=== PATIENT | male | born 1970 | race Caucasian/White ===

== ENCOUNTER 2017-04-08 09:45 | Emergency (ER) | payer BC, OTHER ==
[~2017-04-08] VITALS: Ht 177.8 cm; Wt 73.5 kg
[2017-04-08 09:49] VITALS: Ht 177.8 cm; Wt 73.5 kg
[2017-04-08] MEDS ORDERED: ONDANSETRON 4 MG INJ IV STA ×2 (10:49→12:13)
[2017-04-08] MEDS ORDERED: SOD CHLORIDE 0.9% 1,000 ML IV ONE (11:00)
[2017-04-08 11:06] LABS: BASOPHIL # 0.1 10^3/ul (0.0-0.1); BASOPHILS % 0.4 % (0.0-2.0); EOSINOPHILS % 0.1 % (0.0-7.0); HEMATOCRIT 42.5 % (42.0-52.0); HEMOGLOBIN 14.7 g/dl (14.0-18.0); LYMPHOCYTES # 1.3 10^3/ul (0.8-2.9); LYMPHOCYTES % 9.8 % (15.0-51.0); MEAN CORPUSCULAR HEMOGLOBIN 29.2 pg (29.0-33.0); MEAN CORPUSCULAR HGB CONC 34.6 g/dl (32.0-37.0); MEAN CORPUSCULAR VOLUME 84.5 fl (82.0-101.0); MEAN PLATELET VOLUME 9.7 fl (7.4-10.4); MONOCYTE # 0.4 10^3/ul (0.3-0.9); MONOCYTES % 3.3 % (0.0-11.0); NEUTROPHILS % 86.1 % (39.0-77.0); PLATELET COUNT 283 10^3/UL (140-415); RED BLOOD COUNT 5.03 10^6/ul (4.70-6.10); RED CELL DISTRIBUTION WIDTH 11.8 % (11.5-14.5); WHITE BLOOD COUNT 12.8 10^3/ul (4.8-10.8)
[2017-04-08 11:31] LABS: ALBUMIN 4.7 g/dl (3.3-4.9); ALBUMIN/GLOBULIN RATIO 1.34; BILIRUBIN,INDIRECT 0.9 mg/dl (0-1.1); BILIRUBIN,TOTAL 0.9 mg/dl (0.2-1.3); CALCIUM 9.9 mg/dl (8.4-10.2); CREATININE 0.92 mg/dl (0.61-1.24); POTASSIUM 3.7 mmol/L (3.5-5.1); TOTAL PROTEIN 8.2 g/dl (6.1-8.1)
--- NOTE | 2017-04-08 13:07 | ERD ---
ER Documentation Chief Complaint Chief Complaint NAUSEA AND VOMITING SINCE MIDNIGHT, ABD PAIN, SORE THROAT HPI This is a 46-year-old male presenting to emergency department for nausea and vomiting since midnight yesterday. Patient states for the past 9 hours he has had "nonstop vomiting" and is now having generalized nonspecific abdominal pain. Patient states he is throwing up yellow fluid. Emesis is nonbloody. Patient denies fevers or chills. No dysuria or hematuria. No back or flank pain. No chest pain, shortness breath or difficulty breathing. No cough. ROS All systems reviewed and are negative except as per history of present illness. Medications Home Meds Active Scripts Ondansetron (Ondansetron Odt) 4 Mg Tab.rapdis, 4 MG PO Q6H Y for NAUSEA AND/OR VOMITING, #10 TAB Prov:PADMINI SZYMANSKI NP 04/08/17 Allergies Allergies: Coded Allergies: No Known Allergy (Unverified , 04/08/17) PMhx/Soc Medical and Surgical Hx: pt denies Medical Hx, pt denies Surgical Hx History of Surgery: No Anesthesia Reaction: No Hx Neurological Disorder: No Hx Respiratory Disorders: No Hx Cardiac Disorders: No Hx Psychiatric Problems: No Hx Miscellaneous Medical Probl: No Hx Alcohol Use: No Hx Substance Use: No Hx Tobacco Use: No Smoking Status: Never smoker Physical Exam Vitals Vital Signs Date Time Temp Pulse Resp B/P Pulse Ox O2 Delivery O2 Flow Rate FiO2 04/08/17 13:32 97.4 56 16 117/58 98 Room Air 04/08/17 09:49 97.0 60 17 127/75 99 Physical Exam Const: Alert, actively vomiting Head: Atraumatic Eyes: Normal Conjunctiva ENT: Normal External Ears, Nose and Mouth. Neck: Full range of motion..~ No meningismus. Resp: Clear to auscultation bilaterally. No wheezing Cardio: Regular rate and rhythm, no murmurs Abd: Soft, generalized tenderness, non distended. Normal bowel sounds Skin: No petechiae or rashes Back: No midline or flank tenderness Ext: No cyanosis, or edema Neur: Awake and alert Psych: Normal Mood and Affect Result Diagram: 04/08/17 1056 04/08/17 1056 Results 24 hrs Laboratory Tests Test 04/08/17 10:56 04/08/17 13:27 White Blood Count 12.810^3/ul Red Blood Count 5.0310^6/ul Hemoglobin 14.7g/dl Hematocrit 42.5% Mean Corpuscular Volume 84.5fl Mean Corpuscular Hemoglobin 29.2pg Mean Corpuscular Hemoglobin Concent 34.6g/dl Red Cell Distribution Width 11.8% Platelet Count 08591^3/UL Mean Platelet Volume 9.7fl Neutrophils % 86.1% Lymphocytes % 9.8% Monocytes % 3.3% Eosinophils % 0.1% Basophils % 0.4% Nucleated Red Blood Cells % 0.0/100WBC Neutrophils # 11.010^3/ul Lymphocytes # 1.310^3/ul Monocytes # 0.410^3/ul Eosinophils # 0.010^3/ul Basophils # 0.110^3/ul Nucleated Red Blood Cells # 0.010^3/ul Sodium Level 143mmol/L Potassium Level 3.7mmol/L Chloride Level 104mmol/L Carbon Dioxide Level 26mmol/L Anion Gap 17 Blood Urea Nitrogen 19mg/dl Creatinine 0.92mg/dl Glucose Level 150mg/dl Calcium Level 9.9mg/dl Total Bilirubin 0.9mg/dl Direct Bilirubin 0.00mg/dl Indirect Bilirubin 0.9mg/dl Aspartate Amino Transf (AST/SGOT) 21IU/L Alanine Aminotransferase (ALT/SGPT) 28IU/L Alkaline Phosphatase 57IU/L Total Protein 8.2g/dl Albumin 4.7g/dl Globulin 3.50g/dl Albumin/Globulin Ratio 1.34 Lipase 57U/L Bedside Urine pH (LAB) 8.5 Bedside Urine Protein (LAB) 1+ Bedside Urine Glucose (UA) Negative Bedside Urine Ketones (LAB) 2+ Bedside Urine Blood Negative Bedside Urine Nitrite (LAB) Negative Bedside Urine Leukocyte Esterase (L Negative Current Medications Medications (Trade) Dose Ordered Sig/Ingris Route PRN Reason Start Time Stop Time Status Last Admin Dose Admin Sodium Chloride (NS) 1,000 ml @ 1,000 mls/hr Q1H ONCE IV 04/08/17 11:00 04/08/17 11:59 DC 04/08/17 10:59 Ondansetron HCl (Zofran Inj) 4 mg ONCE STAT IV 04/08/17 10:49 04/08/17 10:55 DC 04/08/17 10:59 Ondansetron HCl (Zofran Inj) 4 mg ONCE STAT IV 04/08/17 12:13 04/08/17 12:14 DC 04/08/17 12:17 Metoclopramide HCl (Reglan) 10 mg ONCE ONCE IV 04/08/17 13:30 04/08/17 13:31 DC 04/08/17 13:08 Dexamethasone (Decadron) 4 mg ONCE ONCE IV 04/08/17 15:00 04/08/17 15:01 DC 04/08/17 14:48 Procedures/MDM MDM: This is a 46-year-old male presenting to the emergency department for vomiting and generalized nonspecific abdominal pain 9 hours. Patient states he began vomiting last night and has had continuous vomiting since. IV access obtained and patient given 1 L IV fluid bolus of normal saline and Zofran 4 mg IV. Labs drawn. Influenza swab negative. CBC shows slightly elevated white blood cell count of 12.8 otherwise unremarkable. CMP shows no significant electrolyte imbalance. Creatinine and BUN are normal. Glucose is normal. Lipase is normal. Urine dip shows 2+ ketones and 1+ protein. Upon reassessment, patient continues to have nausea and vomiting. Another dose of Zofran 4 mg IV ordered. Patient taken to CT for CT imaging of abdomen and pelvis. Upon return, patient continues to have nausea and vomiting. Patient given Reglan [address] abdomen and pelvis reviewed by radiologist as normal. Upon reassessment, patient continues to have nausea. Consulted with Dr. Martinez who suggested Decadron 4mg IV. Patient given medication. Upon reassessment, nausea has improved. No active vomiting. Patient appears alert and stable. Patient states he feels he is able to go home. Patient is appropriate for outpatient management only given prescription for Zofran ODT 4 mg #10. Instructed patient to follow-up with primary care provider in the next 2-3 days for reassessment and additional management. Return to the ED in 8 hours for abdominal pain recheck. Return to ED for any high fever, chest pain, difficulty breathing, shortness breath, wheezing, vomiting, diarrhea, abdominal pain or any new or worsening symptoms. Patient verbalizes understanding. All questions answered at discharge. Disclaimer: Inadvertent spelling and grammatical errors are likely due to EHR/ dictation software use and do not reflect on the overall quality of patient care. Also, please note that the electronic time recorded on this note does not necessarily reflect the actual time of the patient encounter. Departure Diagnosis: Primary Impression: Nausea and vomiting Vomiting type: unspecified Vomiting Intractability: non-intractable Qualified Code: R11.2 - Non-intractable vomiting with nausea, unspecified vomiting type Condition: PADMINI Carrasco NP Apr 08, 2017 13:07
[2017-04-08 13:25] LABS: URINE BLOOD (Dip) POC Negative (NEGATIVE)
[2017-04-08] MEDS ORDERED: METOCLOPRAMIDE 10 MG INJ IV ONE (13:30)
[2017-04-08 13:32] VITALS: BP 117/58; PULSE 56; RESP 16; TEMP 97.4
[2017-04-08] MEDS ORDERED: DEXAMETHASONE 4 MG/ML 1 ML INJ IV ONE (15:00)
[2017-04-08] MEDS ORDERED: ONDA4TAB14 PO (15:16)
--- NOTE | 2017-04-08 15:52 | RADRPT ---
PROCEDURE: CT Abdomen and pelvis without contrast. CLINICAL INDICATION: Abdominal pain. Vomiting. TECHNIQUE: CT scan of the abdomen and pelvis without contrast was performed on a multidetector hig h-resolution CT scan. . Coronal and sagittal reformatted images were obtained from the axial [facility] e images. Standard CT scan of the abdomen pelvis without contrast protocols were performed. The total exam CTDI equals 9.43 mGy and the total exam DLP equals 547.94 mGy-cm. One or more of the following dose reduction techniques were used: - Automated exposure control. - Adjustment of the mA and/or kV according to patient size. Use of iterative reconstruction technique. COMPARISON: None. FINDINGS: The kidneys are normal in size without calcified renal calculi, hydronephrosis or intra renal masses bilaterally. The ureters and urinary bladder are unremarkable. The prostate gland is unremarkable. Negative for intra-abdominal free air, free fluid, abscesses or lymphadenopathy. Those portions of what appear to represent the appendix are unremarkable. Specifically no CT evidenc e of appendicitis. The colon is unremarkable. The stomach and small bowel are unremarkable. The liver spleen pancreas and adrenal glands are unremarkable. The aorta is unremarkable. Abdominal pelvic wall unremarkable. Lung bases are unremarkable. There ar e no acute osseous findings are osteoblastic/osteolytic lesions. Sclerotic density involving the ant erior right acetabulum is consistent with bone island. IMPRESSION: 1. No evidence of appendicitis or diverticulitis. No bowel obstruction. 2. No evidence of calcified urinary calculi or obstructive uropathy. 3. Negative for intra-abdominal free air, free fluid, abscesses or lymphadenopathy. RPTAT:AAJJ Physician Myriam Date Time Electronically viewed and signed by Physician Myriam on 04/08/2017 15:52 BM/
[2017-04-09] MEDS ORDERED: BUPR450T PO (21:29)
[2017-04-09] MEDS ORDERED: QUET300T18 PO (21:30)
[2017-04-09] MEDS ORDERED: PRAZ5CAP16 PO (21:30)
[2017-04-09] MEDS ORDERED: GABA-526 PO (21:30)
[2017-04-09] MEDS ORDERED: MAG355OR14 PO (21:45)
[2017-04-09] MEDS ORDERED: ONDA4TAB8 PO (21:45)
== END 2017-04-08 15:22 | disposition home or self-care (01) ==
LOC: FTE 09:45
DX: R11.2 Nausea with vomiting, unspecified (principal)
CPT/HCPCS: 74176; 80053; 81003; 83690; 85025; 87400; 96374; 96375; 96376; 99285; J1100; J2405; J2765; J7030

== ENCOUNTER 2017-04-09 18:31 | Emergency (ER) | payer BC ==
[~2017-04-09] VITALS: Ht 167.6 cm; Wt 71.5 kg
[~2017-04-09 18:31] MED LIST: ONDA4TAB14 PO
[2017-04-09 18:37] VITALS: Ht 167.6 cm; Wt 71.5 kg
[2017-04-09] MEDS ORDERED: ONDANSETRON 4 MG INJ IV STA (20:00)
[2017-04-09] MEDS ORDERED: SOD CHLORIDE 0.9% 1,000 ML IV STA (20:00)
[2017-04-09 20:17] LABS: BASOPHIL # 0.1 10^3/ul (0.0-0.1); BASOPHILS % 0.4 % (0.0-2.0); EOSINOPHILS % 0.3 % (0.0-7.0); HEMATOCRIT 39.9 % (42.0-52.0); LYMPHOCYTES # 1.5 10^3/ul (0.8-2.9); MEAN CORPUSCULAR HEMOGLOBIN 29.7 pg (29.0-33.0); MEAN CORPUSCULAR HGB CONC 35.1 g/dl (32.0-37.0); MEAN CORPUSCULAR VOLUME 84.7 fl (82.0-101.0); MEAN PLATELET VOLUME 10.3 fl (7.4-10.4); MONOCYTE # 1.1 10^3/ul (0.3-0.9); MONOCYTES % 8.4 % (0.0-11.0); NEUTROPHIL # 10.7 10^3/ul (1.6-7.5); NEUTROPHILS % 79.5 % (39.0-77.0); PLATELET COUNT 280 10^3/UL (140-415); RED BLOOD COUNT 4.71 10^6/ul (4.70-6.10); RED CELL DISTRIBUTION WIDTH 11.9 % (11.5-14.5); WHITE BLOOD COUNT 13.5 10^3/ul (4.8-10.8)
[2017-04-09 20:53] LABS: ALBUMIN 4.6 g/dl (3.3-4.9); ALBUMIN/GLOBULIN RATIO 1.84; BILIRUBIN,INDIRECT 0.7 mg/dl (0-1.1); BILIRUBIN,TOTAL 0.7 mg/dl (0.2-1.3); CALCIUM 8.8 mg/dl (8.4-10.2); CREATININE 0.84 mg/dl (0.61-1.24); POTASSIUM 3.4 mmol/L (3.5-5.1); TOTAL PROTEIN 7.1 g/dl (6.1-8.1)
[2017-04-09] MEDS ORDERED: BUPR450T PO (21:29)
[2017-04-09] MEDS ORDERED: PRAZ5CAP16 PO (21:30)
[2017-04-09] MEDS ORDERED: GABA-526 PO (21:30)
[2017-04-09] MEDS ORDERED: QUET300T18 PO (21:30)
[2017-04-09] MEDS ORDERED: MAG355OR14 PO (21:45)
[2017-04-09] MEDS ORDERED: ONDA4TAB8 PO (21:45)
[2017-04-09 22:15] VITALS: BP 126/86; PULSE 92; RESP 14; TEMP 98.2
--- NOTE | 2017-04-09 23:42 | ERD ---
ER Documentation Chief Complaint Chief Complaint was here yesterday for same c/o left sided abd pain w/ N/V HPI 46-year-old man presents with continued nausea and vomiting despite evaluation and workup yesterday in this emergency department. States he has some lower abdominal cramping but states that overall has improved compared to yesterday, denies blood per rectum or melena, no fevers or chills, no chest pain or shortness of breath. ROS All systems reviewed and are negative except as per history of present illness. Medications Home Meds Active Scripts Mag Hydrox/Al Hydrox/Simeth (Maalox Advanced Suspension) 355 Ml Oral.susp, 2 TSP PO TID for PAIN, #24 OZ Prov:DUONG CANTRELL MD 04/09/17 Ondansetron Hcl* (Zofran*) 4 Mg Tablet, 4 MG PO Q8H Y for NAUSEA AND/OR VOMITING , #15 TAB Prov:DUONG CANTRELL MD 04/09/17 Reported Medications Quetiapine Fumarate* (Quetiapine Fumarate*) 300 Mg Tablet, 300 MG PO HS, TAB 04/09/17 Gabapentin* (Gabapentin*) 600 Mg Tablet, 600 MG PO DAILY, #60 TAB 04/09/17 Prazosin Hcl* (Prazosin Hcl*) 5 Mg Capsule, 5 MG PO HS, CAP 04/09/17 Bupropion Hcl* (Forfivo XL*) 450 Mg Tab.er.24h, 450 MG PO DAILY, TAB 04/09/17 Discontinued Scripts Ondansetron (Ondansetron Odt) 4 Mg Tab.rapdis, 4 MG PO Q6H Y for NAUSEA AND/OR VOMITING, #10 TAB Prov:PADMINI SZYMANSKI NP 04/08/17 Allergies Allergies: Coded Allergies: No Known Allergy (Unverified , 04/09/17) PMhx/Soc Psychiatric illness, anxiety Medical and Surgical Hx: pt denies Medical Hx History of Surgery: Yes Anesthesia Reaction: No Hx Neurological Disorder: No Hx Respiratory Disorders: No Hx Cardiac Disorders: No Hx Psychiatric Problems: No Hx Miscellaneous Medical Probl: No Hx Alcohol Use: No Hx Substance Use: No Hx Tobacco Use: No Smoking Status: Never smoker FmHx Family History: No diabetes Physical Exam Vitals Vital Signs Date Time Temp Pulse Resp B/P Pulse Ox O2 Delivery O2 Flow Rate FiO2 04/09/17 22:15 98.2 92 14 126/86 98 Room Air 04/09/17 19:14 98.5 62 16 127/70 98 Room Air 04/09/17 18:37 98.4 49 20 145/69 98 Physical Exam GENERAL: Well-developed, well-nourished, dehydrated, afebrile HEENT: Dry mucous membranes, pink conjunctiva, no cervical spine tenderness or step-off deformities, no goiter, no jaundice or icterus, extraocular movements intact without pain. No submandibular induration, and no pharyngeal erythema NEURO: Alert and oriented 3, cranial nerves II through XII intact bilaterally, pupils equal round reactive to light, no focal deficits or facial asymmetry, sensation intact distally Strength 5/5 in upper and lower extremities bilaterally CARDIAC: Regular rate and rhythm, no murmurs rubs or gallops LUNGS: Clear bilaterally no wheezing crackles or stridor ABDOMEN: Soft nontender, no guarding, no rigidity, no rebound, no psoas sign no obturator sign. Normoactive bowel sounds SKIN: Warm and dry to touch, no abrasions, contusions, or hematomas, no lacerations, no ecchymosis, no target lesions, and without ulcers EXTREMITIES: No clubbing cyanosis or edema, calves are bilaterally symmetrical, no Homans sign, no popliteal cord sign. Distal pulses equal and bilateral PSYCH: Normal affect without agitation or irritability Result Diagram: 04/09/17193004/09/171930 Results 24 hrs Laboratory Tests Test 04/09/17 19:31 White Blood Count 13.510^3/ul Red Blood Count 4.7110^6/ul Hemoglobin 14.0g/dl Hematocrit 39.9% Mean Corpuscular Volume 84.7fl Mean Corpuscular Hemoglobin 29.7pg Mean Corpuscular Hemoglobin Concent 35.1g/dl Red Cell Distribution Width 11.9% Platelet Count 33251^3/UL Mean Platelet Volume 10.3fl Neutrophils % 79.5% Lymphocytes % 11.0% Monocytes % 8.4% Eosinophils % 0.3% Basophils % 0.4% Nucleated Red Blood Cells % 0.0/100WBC Neutrophils # 10.710^3/ul Lymphocytes # 1.510^3/ul Monocytes # 1.110^3/ul Eosinophils # 0.010^3/ul Basophils # 0.110^3/ul Nucleated Red Blood Cells # 0.010^3/ul Sodium Level 140mmol/L Potassium Level 3.4mmol/L Chloride Level 103mmol/L Carbon Dioxide Level 24mmol/L Anion Gap 16 Blood Urea Nitrogen 18mg/dl Creatinine 0.84mg/dl Glucose Level 101mg/dl Calcium Level 8.8mg/dl Total Bilirubin 0.7mg/dl Direct Bilirubin 0.00mg/dl Indirect Bilirubin 0.7mg/dl Aspartate Amino Transf (AST/SGOT) 22IU/L Alanine Aminotransferase (ALT/SGPT) 32IU/L Alkaline Phosphatase 52IU/L Total Protein 7.1g/dl Albumin 4.6g/dl Globulin 2.50g/dl Albumin/Globulin Ratio 1.84 Lipase 479U/L Current Medications Medications (Trade) Dose Ordered Sig/Ingris Route PRN Reason Start Time Stop Time Status Last Admin Dose Admin Sodium Chloride (NS) 1,000 ml @ 1,000 mls/hr Q1H STAT IV 04/09/17 20:00 04/09/17 20:59 DC 04/09/17 20:13 Ondansetron HCl (Zofran Inj) 4 mg ONCE STAT IV 04/09/17 20:00 04/09/17 20:04 DC 04/09/17 20:13 Procedures/[facility] IV line was established patient was placed on packing clerk rhythm strip revealed a sinus rhythm at about 80 bpm with upright P and T waves. Patient was afebrile I administered 1 L normal saline intravenously and Zofran 4 mg IV with good response. CBC and electrolytes were normal, liver function tests were normal. I reviewed recent imaging studies including his recent CT scan of the abdomen and pelvis which was unremarkable. Differential diagnoses considered, included but not limited to acute coronary syndrome, pulmonary embolism, aortic dissection, abdominal aortic aneurysm, sepsis, stroke, meningitis, encephalitis, pneumonia, appendicitis, cholecystitis , bowel obstruction, pyelonephritis, nephrolithiasis, cystitis, as well as metabolic, hematologic, and electrolyte abnormalities. As well as abscess, cellulitis, fractures, and dislocations. Patient feels much better at this time, and vital signs are normal, symptoms have improved. I did give strict instructions to return to the ED if symptoms continue or worsen, patient will otherwise follow-up with primary care physician. Patient understood instructions and agreed to plan. Disclaimer: Inadvertent spelling and grammatical errors are likely due to EHR/ dictation software use and do not reflect on the overall quality of patient care. Also, please note that the electronic time recorded on this note does not necessarily reflect the actual time of the patient encounter. Departure Diagnosis: Primary Impression: Vomiting Vomiting type: unspecified Vomiting Intractability: non-intractable Nausea presence: with nausea Qualified Code: R11.2 - Non-intractable vomiting with nausea, unspecified vomiting type Additional Impression: Dehydration Condition: Good Patient Instructions: Dehydration (6Y-Adult), Vomiting (6Y-Adult) DUONG CANTRELL MD Apr 09, 2017 23:42
== END 2017-04-09 22:17 | disposition home or self-care (01) ==
LOC: E/R 18:31
DX: E86.0 Dehydration (principal)
CPT/HCPCS: 36415; 80053; 83690; 85025; 96374; 99284; J7030